=== PATIENT | female | born 1960 | race Hispanic/Latino ===

== ENCOUNTER → 2018-05-12 | Outpatient (CLI) | payer BC ==
[~2018-05-12] MED LIST: INSU100I21 SQ; INSU100I3 SQ; METF-446 PO
== END | disposition home or self-care (01) ==
LOC: SHCH 15:31
PROVIDERS: ATTEND Internal Medicine Cardiovascular Disease
DX: R07.9 Chest pain, unspecified (principal); R06.09 Other forms of dyspnea; Z95.0 Presence of cardiac pacemaker
CPT/HCPCS: 93306

== ENCOUNTER 2018-06-05 00:07 | Emergency (ER) | payer BC ==
[2018-06-05 00:48] LABS: BASOPHILS % (AUTO) 0.6 % (0.0-5.0); EOSINOPHILS % (AUTO) 2.1 % (0.0-8.0); HEMATOCRIT 43.8 % (36-48); MEAN CORPUSCULAR HEMOGLOBIN 31.9 pg (27.0-33.0); MEAN CORPUSCULAR HGB CONC 34.1 g/dL (32.0-36.0); MEAN CORPUSCULAR VOLUME 93.5 fL (79-99); MONOCYTES % (AUTO) 8.4 % (3.0-13.0); NEUTROPHILS % (AUTO) 47.9 % (40.0-77.0); NUCLEATED RED BLOOD CELLS 0.1 % (0.0-0.19); PLATELET COUNT (AUTO) 209 K/uL (130-400); RED BLOOD CELL COUNT(AUTO) 4.69 MIL/uL (4.00-5.50); RED CELL DISTRIBUTION WIDTH 13.1 % (11.0-15.5); WHITE BLOOD COUNT (AUTO) 10.1 K/uL (4.8-10.8)
[2018-06-05 00:56] LABS: CARBON DIOXIDE 31 mmol/L (21-32); CHLORIDE 101 mmol/L (101-111); CREATININE 0.7 mg/dL (0.5-1.5); GLOMERULAR FILTR. RATE CALC 91 mL/min (>60); GLUCOSE,RANDOM 191 mg/dL (70-105); POTASSIUM 3.7 mmol/L (3.5-5.1); SODIUM SERUM 140 mmol/L (136-145); UREA NITROGEN, BLOOD 17 mg/dL (7-18)
[2018-06-05 00:58] LABS: APPEARANCE,URINE Clear (CLEAR); BILIRUBIN,URINE Negative (NEGATIVE); COLOR,URINE Yellow (YELLOW); GLUCOSE, URINE (UA) >=1000 mg/dL (NEGATIVE); KETONES,URINE Negative (NEGATIVE); LEUKOCYTE ESTERASE ,URINE Negative (NEGATIVE); NITRATE,URINE Negative (NEGATIVE); OCCULT BLOOD,URINE Negative (NEGATIVE); PROTEIN,URINE Negative (NEGATIVE)
[2018-06-05 01:01] LABS: ALANINE AMINOTRANSFERASE 81 U/L (12-78); ALBUMIN 3.5 g/dL (3.5-5.0); ASPARTATE AMINOTRANSFERASE 50 U/L (10-37); BILIRUBIN,TOTAL 0.3 mg/dL (0.2-1.0); LIPASE 105 U/L (114-286); TOTAL PROTEIN, SERUM 7.7 g/dL (6.0-8.3)
[2018-06-05 01:02] LABS: ALCOHOL, BLOOD < 3 mg/dL (0-10)
[2018-06-05 01:09] LABS: BACTERIA,URINE Rare /HPF (None Seen); RBC,URINE 0-1 /HPF (0-1); SQUAMOUS EPITHELIAL CELL,UR 0-2 /HPF (0-2); WBC,URINE None Seen /HPF (0-1)
[2018-06-05 01:19] LABS: INR 0.99 (0.85-1.15); PARTIAL THROMBOPLASTIN TIME 26.1 SEC (26.3-35.5); PROTHROMBIN TIME 10.4 SEC (9.6-11.6)
== END 2018-06-05 02:29 | disposition left against medical advice (07) ==
LOC: EDH 00:07
DX: R20.2 Paresthesia of skin (principal); M62.81 Muscle weakness (generalized); E11.9 Type 2 diabetes mellitus without complications; Z79.4 Long term (current) use of insulin; Z95.1 Presence of aortocoronary bypass graft; Z90.710 Acquired absence of both cervix and uterus; Z88.0 Allergy status to penicillin; Z88.1 Allergy status to other antibiotic agents
CPT/HCPCS: 36415; 70450; 80053; 81001; 83690; 84484; 85025; 85610; 85730; 93005; 99291; G0480

== ENCOUNTER 2019-05-09 11:55 | Inpatient (IN) | payer BC, OTHER ==
[~2019-05-09] VITALS: Ht 157.5 cm; Wt 97.1 kg
[2019-05-09] MEDS ORDERED: SODIUM CHLORIDE 0.9% 1000ML 1,000 ML IV ONE ×2 (12:47→12:55)
[2019-05-09] MEDS ORDERED: ONDANSETRON HCL 4 MG/2 ML VIAL ONE (12:54)
[2019-05-09 13:27] LABS: APPEARANCE,URINE Clear (CLEAR); BILIRUBIN,URINE Negative (NEGATIVE); COLOR,URINE Yellow (YELLOW); GLUCOSE, URINE (UA) >=1000 mg/dL (NEGATIVE); KETONES,URINE >=80 mg/dL (NEGATIVE); LEUKOCYTE ESTERASE ,URINE Negative (NEGATIVE); NITRATE,URINE Negative (NEGATIVE); OCCULT BLOOD,URINE Negative (NEGATIVE); PH,URINE 7.5 (5.0-8.0); PROTEIN,URINE Negative (NEGATIVE)
[2019-05-09 13:42] LABS: BACTERIA,URINE Rare /HPF (None Seen); RBC,URINE 0-1 /HPF (0-1); SQUAMOUS EPITHELIAL CELL,UR Rare /HPF (0-2); WBC,URINE 0-1 /HPF (0-1)
[2019-05-09 13:54] LABS: BASOPHILS % (AUTO) 0.3 % (0.0-5.0); EOSINOPHILS % (AUTO) 1.5 % (0.0-8.0); HEMATOCRIT 41.3 % (36-48); LYMPHOCYTES % (AUTO) 8.4 % (21.0-51.0); MEAN CORPUSCULAR HEMOGLOBIN 30.8 pg (27.0-33.0); MEAN CORPUSCULAR HGB CONC 33.7 g/dL (32.0-36.0); MEAN CORPUSCULAR VOLUME 91.4 fL (79-99); MONOCYTES % (AUTO) 3.5 % (3.0-13.0); NEUTROPHILS % (AUTO) 85.9 % (40.0-77.0); PLATELET COUNT (AUTO) 230 K/uL (130-400); RED BLOOD CELL COUNT(AUTO) 4.52 MIL/uL (4.00-5.50); RED CELL DISTRIBUTION WIDTH 12.7 % (11.0-15.5); WHITE BLOOD COUNT (AUTO) 15.8 K/uL (4.8-10.8)
[2019-05-09 14:24] LABS: CREATININE 0.7 mg/dL (0.5-1.5); POTASSIUM 4.1 mmol/L (3.5-5.1)
[2019-05-09 14:28] LABS: ALBUMIN 3.6 g/dL (3.5-5.0); BILIRUBIN,TOTAL 0.5 mg/dL (0.2-1.0)
[2019-05-09] MEDS ORDERED: LEVOFLOXACIN 750 MG/D5W 150 ML 150 ML ONE (16:24)
[2019-05-09] MEDS ORDERED: SODIUM CHLORIDE 0.9% 1000ML 1,000 ML IV SCH (17:19)
[2019-05-09] MEDS ORDERED: ACETAMINOPHEN 325 MG TAB PO PRN (17:30)
[2019-05-09] MEDS ORDERED: HYDRALAZINE HCL 20 MG/ML VIAL IV PRN (17:30)
[2019-05-09 17:45] LABS: CHOLESTEROL 140 mg/dL (<200); HDL CHOLESTEROL 53 mg/dL (35-85); LDL DIRECT 79 mg/dL (0-99); TRIGLYCERIDES 55 mg/dL (30-200)
[2019-05-09 20:15] VITALS: BP 142/65
[2019-05-09] MEDS ORDERED: INSULIN GLARGINE 100 UNITS/ML 10 ML VIAL SQ SCH (21:00)
[2019-05-09] MEDS: INSULIN HUMULIN R 100 UNIT/ML 3ML SQ SCH (21:00)
[2019-05-09] MEDS: FAMOTIDINE/PF 20 MG/2 ML VIAL IV SCH (21:18)
[2019-05-09] MEDS: ONDANSETRON HCL 4 MG/2 ML VIAL IV PRN (21:18)
[2019-05-09] MEDS: LACTATED RINGERS 1000ML 1,000 ML IV SCH (21:19)
[2019-05-09] MEDS: ACETAMINOPHEN 325 MG TAB PO PRN (21:29)
[2019-05-09] MEDS: METRONIDAZOLE 500MG/100ML BAG 100 ML IV SCH (21:35)
[2019-05-09 23:33] VITALS: BP 131/58
[2019-05-10 03:55] VITALS: BP 123/50
[2019-05-10] MEDS: KETOROLAC TROMETHAMINE 15MG/ML IV PRN ×2 (04:01→13:28)
[2019-05-10 05:19] LABS: BASOPHILS % (AUTO) 0.2 % (0.0-5.0); HEMATOCRIT 38.9 % (36-48); LYMPHOCYTES % (AUTO) 10.9 % (21.0-51.0); MEAN CORPUSCULAR HEMOGLOBIN 30.7 pg (27.0-33.0); MEAN CORPUSCULAR HGB CONC 33.2 g/dL (32.0-36.0); MEAN CORPUSCULAR VOLUME 92.6 fL (79-99); NEUTROPHILS % (AUTO) 87.3 % (40.0-77.0); PLATELET COUNT (AUTO) 190 K/uL (130-400); RED CELL DISTRIBUTION WIDTH 12.7 % (11.0-15.5); WHITE BLOOD COUNT (AUTO) 8.1 K/uL (4.8-10.8)
[2019-05-10] MEDS: METRONIDAZOLE 500MG/100ML BAG 100 ML IV SCH ×3 (05:30→16:43)
[2019-05-10 05:37] LABS: ALBUMIN 2.9 g/dL (3.5-5.0); BILIRUBIN,TOTAL 0.8 mg/dL (0.2-1.0); CREATININE 0.7 mg/dL (0.5-1.5); POTASSIUM 3.9 mmol/L (3.5-5.1); TOTAL PROTEIN, SERUM 6.7 g/dL (6.0-8.3)
[2019-05-10] MEDS: INSULIN HUMULIN R 100 UNIT/ML 3ML SQ SCH ×4 (07:30→20:20)
[2019-05-10 08:00] VITALS: BP 99/48
[2019-05-10] MEDS ORDERED: INSULIN GLARGINE 100 UNITS/ML 10 ML VIAL SQ SCH ×2 (08:45→21:00)
[2019-05-10] MEDS ORDERED: INSULIN GLARGINE 100 UNITS/ML 10 ML VIAL SQ ONE (09:00)
[2019-05-10] MEDS: FAMOTIDINE/PF 20 MG/2 ML VIAL IV SCH ×2 (10:21→20:32)
[2019-05-10] MEDS: LEVOFLOXACIN 750 MG/D5W 150 ML 150 ML IV SCH (10:21)
[2019-05-10] MEDS: LACTATED RINGERS 1000ML 1,000 ML IV SCH ×2 (10:52→23:40)
[2019-05-10 11:45] VITALS: BP 103/40
[2019-05-10] MEDS: ONDANSETRON HCL 4 MG/2 ML VIAL IV PRN ×2 (13:08→18:53)
[2019-05-10] MEDS ORDERED: KETOROLAC TROMETHAMINE 15MG/ML IV PRN (13:15)
[2019-05-10 16:00] VITALS: BP 130/60
[2019-05-10 16:44] VITALS: BP 130/60
[2019-05-10 19:46] VITALS: BP 146/70
--- NOTE | 2019-05-10 19:53 | NUR ---
D/C PLAN CM spoke to pt regarding d/c planning. Pt is ind. and lives with spouse. States spouse can assist in care if needed. Denies having any DME or services at home. Plan to home. No needs verbalized or identified. CM to f/u. Addendum: 05/10/19 at 1953 by QUIQUE ROCHA CM Amended: Links added.
[2019-05-10] MEDS: INSULIN GLARGINE 100 UNITS/ML 10 ML VIAL SQ SCH (20:21)
[2019-05-10] MEDS: MORPHINE SULFATE 2 MG/ML 1ML SYG IV PRN (21:01)
[2019-05-11] VITALS (7 sets, daily range): BP systolic 112–142; BP diastolic 53–76
[2019-05-11] MEDS: ONDANSETRON HCL 4 MG/2 ML VIAL IV PRN ×3 (00:44→18:16)
[2019-05-11] MEDS: METRONIDAZOLE 500MG/100ML BAG 100 ML IV SCH ×3 (00:44→16:31)
[2019-05-11] MEDS: KETOROLAC TROMETHAMINE 15MG/ML IV PRN (04:00)
[2019-05-11 05:18] LABS: BASOPHILS % (AUTO) 0.3 % (0.0-5.0); EOSINOPHILS % (AUTO) 0.1 % (0.0-8.0); HEMATOCRIT 36.6 % (36-48); LYMPHOCYTES % (AUTO) 9.5 % (21.0-51.0); MEAN CORPUSCULAR HEMOGLOBIN 30.7 pg (27.0-33.0); MEAN CORPUSCULAR HGB CONC 33.1 g/dL (32.0-36.0); MEAN CORPUSCULAR VOLUME 92.9 fL (79-99); MONOCYTES % (AUTO) 7.7 % (3.0-13.0); NEUTROPHILS % (AUTO) 82.1 % (40.0-77.0); PLATELET COUNT (AUTO) 162 K/uL (130-400); RED BLOOD CELL COUNT(AUTO) 3.94 MIL/uL (4.00-5.50); RED CELL DISTRIBUTION WIDTH 12.7 % (11.0-15.5); WHITE BLOOD COUNT (AUTO) 17.5 K/uL (4.8-10.8)
[2019-05-11 05:40] LABS: CREATININE 0.7 mg/dL (0.5-1.5); POTASSIUM 4.2 mmol/L (3.5-5.1)
[2019-05-11] MEDS: INSULIN HUMULIN R 100 UNIT/ML 3ML SQ SCH ×4 (07:30→21:00)
[2019-05-11] MEDS: INSULIN GLARGINE 100 UNITS/ML 10 ML VIAL SQ SCH ×2 (08:03→22:40)
[2019-05-11] MEDS: FAMOTIDINE/PF 20 MG/2 ML VIAL IV SCH ×2 (09:00→22:29)
[2019-05-11] MEDS: LEVOFLOXACIN 750 MG/D5W 150 ML 150 ML IV SCH (10:04)
[2019-05-11] MEDS: LACTATED RINGERS 1000ML 1,000 ML IV SCH (13:03)
[2019-05-11] MEDS: MORPHINE SULFATE 2 MG/ML 1ML SYG IV PRN (22:29)
[2019-05-12] VITALS (24 sets, daily range): BP systolic 114–150; BP diastolic 46–79
[2019-05-12] MEDS: METRONIDAZOLE 500MG/100ML BAG 100 ML IV SCH ×3 (01:48→17:30)
[2019-05-12] MEDS: LACTATED RINGERS 1000ML 1,000 ML IV SCH ×2 (02:20→15:40)
[2019-05-12 06:11] LABS: BASOPHILS % (AUTO) 0.1 % (0.0-5.0); EOSINOPHILS % (AUTO) 0.1 % (0.0-8.0); HEMATOCRIT 35.1 % (36-48); LYMPHOCYTES % (AUTO) 14.7 % (21.0-51.0); MEAN CORPUSCULAR HEMOGLOBIN 30.9 pg (27.0-33.0); MEAN CORPUSCULAR HGB CONC 33.6 g/dL (32.0-36.0); MEAN CORPUSCULAR VOLUME 91.9 fL (79-99); MONOCYTES % (AUTO) 10.4 % (3.0-13.0); NEUTROPHILS % (AUTO) 74.3 % (40.0-77.0); PLATELET COUNT (AUTO) 158 K/uL (130-400); RED BLOOD CELL COUNT(AUTO) 3.82 MIL/uL (4.00-5.50); RED CELL DISTRIBUTION WIDTH 12.6 % (11.0-15.5); WHITE BLOOD COUNT (AUTO) 14.4 K/uL (4.8-10.8)
[2019-05-12 06:30] LABS: ALBUMIN 2.7 g/dL (3.5-5.0); BILIRUBIN,TOTAL 0.4 mg/dL (0.2-1.0); CREATININE 0.6 mg/dL (0.5-1.5); POTASSIUM 3.6 mmol/L (3.5-5.1); TOTAL PROTEIN, SERUM 6.6 g/dL (6.0-8.3)
[2019-05-12] MEDS: INSULIN GLARGINE 100 UNITS/ML 10 ML VIAL SQ SCH ×2 (06:34→21:00)
[2019-05-12] MEDS: INSULIN HUMULIN R 100 UNIT/ML 3ML SQ SCH ×4 (06:34→21:00)
[2019-05-12] MEDS: ONDANSETRON HCL 4 MG/2 ML VIAL IV PRN (06:39)
[2019-05-12] MEDS: MORPHINE SULFATE 2 MG/ML 1ML SYG IV PRN (06:40)
[2019-05-12] MEDS: FAMOTIDINE/PF 20 MG/2 ML VIAL IV SCH ×2 (09:22→20:48)
[2019-05-12] MEDS: LEVOFLOXACIN 750 MG/D5W 150 ML 150 ML IV SCH (09:22)
[2019-05-12] MEDS: KETOROLAC TROMETHAMINE 15MG/ML IV PRN (09:22)
--- NOTE | 2019-05-12 16:00 | NUR ---
SX Patient picked up for surgery. consent signed. verbalizes all instructions and voices no questions and/or concerns.
[2019-05-12] MEDS ORDERED: PROPOFOL 10 MG/ML 20ML VIAL IV ONE (16:14)
[2019-05-12] MEDS ORDERED: MIDAZOLAM HCL 1 MG/ML 2ML VIAL ONE (16:14)
[2019-05-12] MEDS ORDERED: SUCCINYLCHOLINE CHLORIDE 20 MG/ML 10 ML VIAL ONE (16:14)
[2019-05-12] MEDS ORDERED: LIDOCAINE PF 2% 5ML ABBOJECT ONE (16:14)
[2019-05-12] MEDS ORDERED: ONDANSETRON HCL 4 MG/2 ML VIAL ONE (16:15)
[2019-05-12] MEDS ORDERED: ROCURONIUM 10MG/1ML SYR 10 MG/ML ML ONE (16:15)
[2019-05-12] MEDS ORDERED: FENTANYL CITRATE PF 50 MCG/1 ML 2ML VIAL ONE (16:21)
[2019-05-12] MEDS ORDERED: BUPIVACAINE/PF 0.5% 30ML VIAL ONE (16:40)
[2019-05-12] MEDS ORDERED: NEOSTIGMINE 5MG/5ML SYR IV ONE (17:06)
[2019-05-12] MEDS ORDERED: GLYCOPYRROLATE 1 MG/5 ML SYRINGE ONE (17:06)
--- NOTE | 2019-05-12 18:30 | NUR ---
POST OP patient returned to room.. has 3 bandages to abdominal area, dry and intact, no signs of active bleeding. pt is awake alert and oriented. denies any pain, shortness of breath. post op vitals have been started. bedrest. pt educated and states no questions.
[2019-05-12] MEDS ORDERED: TRAMADOL /APAP 37.5MG/325MG TAB PO PRN (19:30)
[2019-05-13] MEDS: METRONIDAZOLE 500MG/100ML BAG 100 ML IV SCH ×2 (01:05→09:23)
[2019-05-13] MEDS: MORPHINE SULFATE 2 MG/ML 1ML SYG IV PRN (01:05)
[2019-05-13] MEDS: ONDANSETRON HCL 4 MG/2 ML VIAL IV PRN (01:05)
[2019-05-13 03:00] VITALS: BP 150/67
--- NOTE | 2019-05-13 03:41 | NUR ---
AMBULATED PATIENT AMBULATED APPROXIMATELY [address] NO SOB, AMBULATED STEADILY. PT REPORTS SLIGHT DISCOMFORT, BUT LIBERTY PAIN. PT RETURNED TO ROOM. SITTING ON EDGE OF BED, DRINKING WATER. SISTER WITH PT. NO DISTRESS OBSERVED. BED IN LOWEST POSITION, CALL LIGHT AT [facility], INSTRUCTED PT TO CALL FOR ASSISTANCE BEFORE GETTING UP AGAIN, PT VERBALLY AGREES TO DO SO.
[2019-05-13] MEDS: LACTATED RINGERS 1000ML 1,000 ML IV SCH (05:00)
[2019-05-13 05:49] LABS: BASOPHILS % (AUTO) 0.2 % (0.0-5.0); EOSINOPHILS % (AUTO) 0.2 % (0.0-8.0); HEMATOCRIT 37.7 % (36-48); LYMPHOCYTES % (AUTO) 15.8 % (21.0-51.0); MEAN CORPUSCULAR HEMOGLOBIN 30.6 pg (27.0-33.0); MEAN CORPUSCULAR HGB CONC 33.4 g/dL (32.0-36.0); MEAN CORPUSCULAR VOLUME 91.5 fL (79-99); MONOCYTES % (AUTO) 10.9 % (3.0-13.0); NEUTROPHILS % (AUTO) 72.3 % (40.0-77.0); PLATELET COUNT (AUTO) 190 K/uL (130-400); RED BLOOD CELL COUNT(AUTO) 4.12 MIL/uL (4.00-5.50); RED CELL DISTRIBUTION WIDTH 12.4 % (11.0-15.5); WHITE BLOOD COUNT (AUTO) 12.4 K/uL (4.8-10.8)
[2019-05-13 06:08] LABS: ALBUMIN 2.7 g/dL (3.5-5.0); BILIRUBIN,TOTAL 0.4 mg/dL (0.2-1.0); CREATININE 0.6 mg/dL (0.5-1.5); POTASSIUM 3.6 mmol/L (3.5-5.1); TOTAL PROTEIN, SERUM 6.7 g/dL (6.0-8.3)
[2019-05-13] MEDS: INSULIN GLARGINE 100 UNITS/ML 10 ML VIAL SQ SCH (06:26)
[2019-05-13] MEDS: INSULIN HUMULIN R 100 UNIT/ML 3ML SQ SCH ×2 (06:26→11:30)
[2019-05-13] MEDS: ACETAMINOPHEN 325 MG TAB PO PRN (06:31)
[2019-05-13 08:50] VITALS: BP 146/72
[2019-05-13] MEDS: LEVOFLOXACIN 750 MG/D5W 150 ML 150 ML IV SCH (09:22)
[2019-05-13] MEDS: FAMOTIDINE/PF 20 MG/2 ML VIAL IV SCH (09:23)
[2019-05-13 11:02] VITALS: BP 138/68
[2019-05-13] MEDS ORDERED: METR-172 PO (15:43)
[2019-05-13] MEDS ORDERED: LEVO750T46 PO (15:43)
== END 2019-05-13 18:00 | disposition home or self-care (01) | DRG 343 ==
LOC: EDH 11:55 → EDHIP 17:19 → 3DH 20:15
PROVIDERS: ADMIT Hospitalist; ATTEND Hospitalist
PROC: 0DTJ4ZZ Resection of Appendix, Percutaneous Endoscopic Approach (ICD-10-PCS; principal; 2019-05-12 16:20)
DX: K35.80 Unspecified acute appendicitis (principal); E10.65 Type 1 diabetes mellitus with hyperglycemia; I10 Essential (primary) hypertension; E78.00 Pure hypercholesterolemia, unspecified; E66.01 Morbid (severe) obesity due to excess calories; Z68.39 Body mass index [BMI] 39.0-39.9, adult; Z88.0 Allergy status to penicillin; Z88.8 Allergy status to other drugs, medicaments and biological substances; Z79.4 Long term (current) use of insulin; Z95.0 Presence of cardiac pacemaker; Z83.3 Family history of diabetes mellitus; Z80.8 Family history of malignant neoplasm of other organs or systems
CPT/HCPCS: 36415; 71045; 74176; 80048; 80053; 80061; 81001; 82948; 83690; 83880; 84145; 84484; 85025; 93005; A4344; G0378; J0330; J1885; J1956; J2001; J2250; J2405; J2704; J2710; J3010; J3490; J7030; J7120

== ENCOUNTER 2022-01-13 23:41 | Emergency (ER) | payer OTHER ==
[~2022-01-13] VITALS: Ht 157.5 cm; Wt 97.5 kg
[~2022-01-13 23:41] MED LIST changes: +LEVO750T39 PO; +METR-172 PO
[2022-01-14] VITALS: BP 149/70
== END 2022-01-14 00:34 | disposition home or self-care (01) ==
LOC: EDH 23:41
DX: H43.812 Vitreous degeneration, left eye (principal); E11.9 Type 2 diabetes mellitus without complications; Z79.4 Long term (current) use of insulin; Z79.84 Long term (current) use of oral hypoglycemic drugs; Z88.0 Allergy status to penicillin; Z88.1 Allergy status to other antibiotic agents; Z90.49 Acquired absence of other specified parts of digestive tract; Z95.810 Presence of automatic (implantable) cardiac defibrillator
CPT/HCPCS: 99281

== ENCOUNTER 2024-02-04 17:26 | Observation (INO) | payer BC ==
[~2024-02-04] VITALS: Ht 157.5 cm; Wt 98.0 kg
[~2024-02-04 17:26] MED LIST changes: -INSU100I21 SQ; +INSU100I22 SQ; -LEVO750T39 PO; +LEVO750T40 PO
[2024-02-04 18:17] LABS: HEMATOCRIT 42.2 % (36-48); MEAN CORPUSCULAR HEMOGLOBIN 31.5 pg (27.0-33.0); MEAN CORPUSCULAR HGB CONC 34.4 g/dL (32.0-36.0); MEAN CORPUSCULAR VOLUME 91.5 fL (79-99); RED BLOOD CELL COUNT(AUTO) 4.61 MIL/uL (4.00-5.50); RED CELL DISTRIBUTION WIDTH 12.9 % (11.0-15.5); WHITE BLOOD COUNT (AUTO) 10.1 K/uL (4.8-10.8)
[2024-02-04 18:29] LABS: INR 1.08 (0.85-1.15); PROTHROMBIN TIME 11.6 SEC (9.6-11.6)
[2024-02-04 18:30] LABS: CREATININE 0.9 mg/dL (0.5-1.0); PARTIAL THROMBOPLASTIN TIME 26.3 SEC (26.3-35.5); POTASSIUM 3.9 mmol/L (3.5-5.1)
[2024-02-04 18:43] LABS: ALBUMIN 3.5 g/dL (3.5-5.0); BILIRUBIN,TOTAL 0.3 mg/dL (0.2-1.0); MAGNESIUM 1.5 mg/dL (1.80-2.40); THYROID STIMULATING HORMONE 2.56 uIU/mL (0.36-3.74); TOTAL PROTEIN, SERUM 7.7 g/dL (6.0-8.3)
[2024-02-04] MEDS ORDERED: INSU100V12 SQ (20:12)
[2024-02-04] MEDS ORDERED: INSU100I3 SQ (20:12)
[2024-02-04 21:30] VITALS: O2SAT 96
[2024-02-04 21:50] VITALS: BP 120/68; PULSE 86; RESP 20; TEMP 98.4
[2024-02-05] VITALS (12 sets, daily range): BP systolic 110–129; BP diastolic 43–75; PULSE 70–89; RESP 16–18; TEMP 97.6–98.6; O2SAT 98
[2024-02-05] MEDS ORDERED: PoTASSium chl 10% ELIXIR 20MEQ 20 MEQ/15 ML UDCUP PO PRN (08:30)
[2024-02-05] MEDS ORDERED: PoTASSium chloRIDE 20MEQ ER 20 MEQ ERTAB PO PRN (08:30)
[2024-02-05] MEDS ORDERED: PoTASSium chloRIDE 20MEQ/100ML 100 ML IV PRN (08:30)
[2024-02-05] MEDS: MAGNESIUM 2GM PREMIX 50ML 50 ML IV PRN (08:37)
--- NOTE | 2024-02-05 09:00 | HMCSR ---
APPROVED REPORT EXAM: Two-dimensional and M-mode echocardiogram with Doppler and color Doppler. INDICATION ICD: PACEMAKER BATTERY DEPLETION 2D Dimensions RVDd2.8 cmLVEF(%)66.2 (>50%)LVED Vol(simp.)40.0 mL IVSd1.0 (0.7-1.1cm)FS(%)36 %LVES Vol(simp.)15.1 mL LVDd4.4 (3.8-5.6cm)LA (2D)4.0 (1.6-4.0cm)LVEF(%, simp.)62 % PWd1.2 (0.7-1.1cm)Ao Root(2D)2.5 (2.0-3.7cm)LA ESV INDEX (4CH)21.70 mL/m2 IVSs1.2 cmLVOT diam2.1 (1.8-2.4cm) LVDs2.8 (2.5-4.0cm)IVC diam1.3 cm PWs1.2 cm M-Mode Dimensions EPSS0.9 cm LA (MM)4.5 (1.6-4.0cm) Ao Root(MM)2.8 (2.0-3.7cm) Aortic Valve AoV VTI0.3 mAo Mean GR5.0 mmHgLVOT VTI0.16 m NITHIN (VMAX)1.7 cm2AVA (VTI) 1.7 cm2 Mitral Valve MV E Vmax63.5 cm/sDECEL Ytvj992 ms MV A Vmax36.4 cm/sP 1/2 T48 ms E/A ratio1.7MVA (PHT)4.6 cm2 TDI E/E' Xydjzd68.8E/E' Lateral8.5 Medial E' Peak V5.40 cm/sLateral E' Peak V7.50 cm/s Pulmonary Valve PV Vmax1.0 m/s PV Peak GR4.0 mmHg Tricuspid Valve TR Vmax2.3 m/s TR Peak GR20.8 mmHg Left Ventricle The left ventricle is normal size. There is normal left ventricular wall thickness. Left ventricle sy stolic function is normal. LVEF is 60-65%. The left ventricular diastolic function is normal. Right Ventricle The right ventricle is normal size. The right ventricular systolic function is normal. Atria The left atrium size is normal. The right atrium size is normal. Aortic Valve The aortic valve is normal in structure. No aortic regurgitation is present. There is no aortic valvu lar stenosis. Mitral Valve The mitral valve is normal in structure. There is no evidence of significant mitral regurgitation. Th ere is no mitral valve stenosis. Tricuspid Valve The tricuspid valve is normal in structure. There is trace tricuspid valve regurgitation noted. Pulmonic Valve The pulmonary valve is normal in structure. There is no pulmonic valvular regurgitation. Great Vessels The aortic root is normal in size. The IVC is normal in size and collapses >50% with inspiration. Pericardium There is no pericardial effusion. Prominent anterior epicardial fat pad is present. Conclusion Left ventricle systolic function is normal. LVEF is 60-65%. Normal diastolic function. No significant valvular abnormalities
[2024-02-05] MEDS ORDERED: VANCOMYCIN 1G/250ML KIT 500 ML IV ONE (09:08)
[2024-02-05] MEDS ORDERED: BUPIvacaine/PF 0.25% 30ML VIAL IJ ONE (09:08)
[2024-02-05] MEDS ORDERED: LIDOCAINE HCL 1% MDV 50ML VIAL ONE (09:08)
--- NOTE | 2024-02-05 09:08 | NUR ---
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 Patient transferred now.
[2024-02-05] MEDS ORDERED: MEPERIDINE-PF 25 MG/ML SYG ONE ×3 (09:41→10:18)
[2024-02-05] MEDS ORDERED: MIDAZOLAM HCL 1 MG/ML 2ML VIAL ONE ×3 (09:41→10:19)
[2024-02-05] MEDS ORDERED: BACITRACIN 1 EACH PACKET TP ONE (10:33)
[2024-02-05] MEDS ORDERED: acetaMINOPHEN 500 MG TABLET PO PRN (11:30)
[2024-02-05] MEDS ORDERED: acetaMINOPHEN WITH coDEINE 1 TAB TAB PO PRN (11:30)
--- NOTE | 2024-02-05 12:06 | NUR ---
Transfer back from analytical lab analyst Patient arrived back from analytical lab analyst procedure. Patient alert and oriented with only complaints of dry mouth. Patient's left chest incision site, clean,dry,intact with no bruising, hematoma, or bleeding noted. Will continue nursing care. Addendum: 02/05/24 at 1208 by JCARLOS ADAMS RN RN [id number]- Transfer back from analytical lab analyst Patient arrived back from analytical lab analyst procedure. Patient alert and oriented with only complaints of dry mouth. Patient's left chest incision site, clean,dry,intact with no bruising, hematoma, or bleeding noted. Will continue nursing care.
== END 2024-02-05 16:00 | disposition home or self-care (01) ==
LOC: EDH 17:26 → EDHIP 17:36 → 2DH 20:58
PROVIDERS: ADMIT Internal Medicine Cardiovascular Disease; ATTEND Internal Medicine Cardiovascular Disease
DX: Z45.010 Encounter for checking and testing of cardiac pacemaker pulse generator [battery] (principal); E11.9 Type 2 diabetes mellitus without complications; Z79.899 Other long term (current) drug therapy; Z88.0 Allergy status to penicillin; Z90.710 Acquired absence of both cervix and uterus; Z98.890 Other specified postprocedural states
CPT/HCPCS: 84443; 83735 ×2; 80053; 85027; 85610; 85730; 82948 ×2; 36415 ×2; 33228; 96376; 96365; 93306; G0378 ×21; G0379; C1785; J3475 ×2; J0665; J2250 ×3; J3370; J2175 ×3; J3490; 96374; 99156; 99157